=== PATIENT | female | born 1970 | race African-American/Black ===

== ENCOUNTER 2019-07-02 14:13 | Emergency (ER) | payer OTHER ==
[~2019-07-02] VITALS: Ht 170.2 cm; Wt 100.0 kg
[2019-07-02 19:25] LABS: BASOPHILS % 0.9 % (0.0-2.0); EOSINOPHILS % 0.7 % (0.0-5.0); HEMATOCRIT. 27.4 % (36.0-48.0); LYMPHOCYTES % 31.9 % (20.0-50.0); MEAN CORPUSCULAR HEMOGLOBIN 19.8 pg (28.0-32.0); MEAN PLATELET VOLUME 8.3 fl (7.4-10.4); MONOCYTES % 8.6 % (2.0-8.0); NEUTROPHILS % 57.9 % (40.0-76.0); PLATELET 420 x1000/uL (130-400); RED BLOOD CELL COUNT 4.03 mill/uL (4.2-5.4); RED CELL DISTRIBUTION WIDTH 20.9 % (11.6-14.6)
[2019-07-02 19:26] LABS: CHLORIDE 105 mEq/L (98-107)
[2019-07-02 20:14] LABS: PLATELET ESTIMATE SLIGHTLY INCREASED
[2019-07-02 20:24] LABS: CLARITY URINE CLOUDY (CLEAR); COLOR URINE YELLOW (YELLOW); KETONES URINE NEGATIVE (NEGATIVE); LEUKOCYTE ESTERASE URINE 1+ (NEGATIVE); NITRITE URINE NEGATIVE (NEGATIVE); OCCULT BLOOD URINE NEGATIVE (NEGATIVE); PH URINE 6.5 (4.5-8.0); PROTEIN URINE NEGATIVE (NEGATIVE); SPECIFIC GRAVITY URINE 1.023 (1.005-1.030)
[2019-07-02 21:00] VITALS: BP 156/67
== END 2019-07-02 21:00 | disposition home or self-care (01) ==
LOC: ER 14:13
DX: R53.83 Other fatigue (principal); R00.0 Tachycardia, unspecified; D64.9 Anemia, unspecified; I10 Essential (primary) hypertension; Z98.84 Bariatric surgery status
CPT/HCPCS: 36415; 71045; 81003; 83880; 84484; 86850; 86900; 93005; 99284

== ENCOUNTER 2019-09-26 09:58 | Inpatient (IN) | payer OTHER ==
[~2019-09-26] VITALS: Ht 172.7 cm; Wt 137.0 kg
[2019-09-26 12:53] LABS: CHLORIDE 105 mEq/L (98-107)
[2019-09-26 12:55] LABS: BASOPHILS % 0.8 % (0.0-2.0); EOSINOPHILS % 0.2 % (0.0-5.0); HEMATOCRIT. 26.3 % (36.0-48.0); HEMOGLOBIN. 7.6 g/dL (12.0-16.0); LYMPHOCYTES % 28.7 % (20.0-50.0); MEAN CORPUSCULAR HEMOGLOBIN 19.2 pg (28.0-32.0); MEAN CORPUSCULAR VOLUME 66.8 fL (81.0-99.0); MEAN PLATELET VOLUME 8.8 fl (7.4-10.4); MONOCYTES % 6.7 % (2.0-8.0); NEUTROPHILS % 63.6 % (40.0-76.0); PLATELET 380 x1000/uL (130-400); RED BLOOD CELL COUNT 3.94 mill/uL (4.2-5.4); RED CELL DISTRIBUTION WIDTH 22.1 % (11.6-14.6)
[2019-09-26 13:10] LABS: PROTHROMBIN TIME 10.7 sec (9.6-11.0)
[2019-09-26 13:51] LABS: PLATELET ESTIMATE NORMAL
[2019-09-26] MEDS ORDERED: HYDROCODONE/ACETAMINOPHEN 5/325MG TABLET PO PRN ×2 (19:00→22:30)
[2019-09-26] MEDS ORDERED: SODIUM CHLORIDE 0.9% 1,000 ML IV SCH (22:10)
[2019-09-26] MEDS ORDERED: MORPHINE SULFATE 2 MG/ML CPJ (NOT FOR IM USE) IV PRN (22:15)
[2019-09-26] MEDS ORDERED: ONDANSETRON HCL 4MG/2ML INJ IV PRN (22:15)
[2019-09-26] MEDS ORDERED: HYDROCODONE/APAP 7.5/325MG 1 TAB TABLET PO PRN (22:15)
[2019-09-26] MEDS ORDERED: CLONIDINE 0.1MG TABLET PO PRN (22:15)
[2019-09-26] MEDS ORDERED: LORAZEPAM 2MG/ML CPJ IV PRN (22:15)
[2019-09-26] MEDS ORDERED: FERROUS SULFATE 325MG TABLET PO SCH (22:45)
[2019-09-26] MEDS: POTASSIUM CHLORIDE 20MEQ TABLET SR PO SCH (22:55)
[2019-09-27 05:58] LABS: BASOPHILS % 0.9 % (0.0-2.0); EOSINOPHILS % 0.9 % (0.0-5.0); HEMATOCRIT. 26.2 % (36.0-48.0); HEMOGLOBIN. 7.7 g/dL (12.0-16.0); MEAN CORPUSCULAR HEMOGLOBIN 19.7 pg (28.0-32.0); MEAN CORPUSCULAR VOLUME 67.2 fL (81.0-99.0); MEAN PLATELET VOLUME 8.7 fl (7.4-10.4); MONOCYTES % 10.2 % (2.0-8.0); PLATELET 335 x1000/uL (130-400); RED BLOOD CELL COUNT 3.89 mill/uL (4.2-5.4)
[2019-09-27 06:00] LABS: CHLORIDE 109 mEq/L (98-107)
[2019-09-27 06:05] LABS: PHOSPHORUS 2.8 mg/dL (2.5-4.9)
[2019-09-27 09:00] VITALS: BP 195/84
[2019-09-27] MEDS ORDERED: IBUP-2029 PO (09:58)
[2019-09-27] MEDS ORDERED: FERR-71 PO (09:59)
[2019-09-27] MEDS ORDERED: LORA10TA64 PO (10:00)
[2019-09-27] MEDS ORDERED: INFLUENZA VIRUS VACCINE(AFLURIA) 0.5ML SYR IM ONE (10:30)
[2019-09-27] MEDS: POTASSIUM CHLORIDE 20MEQ TABLET SR PO SCH (10:52)
[2019-09-27] MEDS: DOCUSATE SODIUM 250MG CAPSULE PO SCH (10:52)
[2019-09-27 11:11] VITALS: BP 195/84
[2019-09-27 12:00] VITALS: BP 123/53
[2019-09-27] MEDS: FERROUS SULFATE 325MG TABLET PO SCH ×2 (15:22→18:26)
[2019-09-27 16:00] VITALS: BP 141/56
[2019-09-27 20:00] VITALS: BP 119/55
[2019-09-27] MEDS: AMLODIPINE 5MG TABLET PO SCH (20:58)
[2019-09-28 04:00] VITALS: BP 139/77
[2019-09-28 07:49] LABS: BASOPHILS % 1.5 % (0.0-2.0); EOSINOPHILS % 1.3 % (0.0-5.0); HEMATOCRIT. 26.1 % (36.0-48.0); HEMOGLOBIN. 7.6 g/dL (12.0-16.0); LYMPHOCYTES % 32.6 % (20.0-50.0); MEAN CORPUSCULAR HEMOGLOBIN 19.8 pg (28.0-32.0); MEAN CORPUSCULAR VOLUME 68.3 fL (81.0-99.0); MEAN PLATELET VOLUME 8.8 fl (7.4-10.4); MONOCYTES % 9.5 % (2.0-8.0); NEUTROPHILS % 55.1 % (40.0-76.0); PLATELET 332 x1000/uL (130-400); RED BLOOD CELL COUNT 3.82 mill/uL (4.2-5.4); RED CELL DISTRIBUTION WIDTH 23.2 % (11.6-14.6)
[2019-09-28 08:00] VITALS: BP 156/72
[2019-09-28 08:17] LABS: CHLORIDE 108 mEq/L (98-107)
[2019-09-28] MEDS: DOCUSATE SODIUM 250MG CAPSULE PO SCH (09:37)
[2019-09-28] MEDS: POTASSIUM CHLORIDE 20MEQ TABLET SR PO SCH (09:37)
[2019-09-28] MEDS: FERROUS SULFATE 325MG TABLET PO SCH (09:37)
[2019-09-28] MEDS: AMLODIPINE 5MG TABLET PO SCH (09:38)
[2019-09-28 11:10] VITALS: BP 138/72
[2019-09-28 12:00] VITALS: BP 138/76
[2019-09-28 15:05] LABS: *AMPHETAMINES SCREEN URINE NEGATIVE (NEGATIVE); *BARBITURATES SCREEN URINE NEGATIVE (NEGATIVE); *BENZODIAZEPINES SCREEN URINE NEGATIVE (NEGATIVE)
[2019-09-28 15:06] LABS: *COCAINE SCREEN URINE NEGATIVE (NEGATIVE); CANNABINOID URINE SCREEN NEGATIVE (NEGATIVE); METHADONE URINE SCREEN NEGATIVE (NEGATIVE); OPIATES URINE SCREEN PRESUMTIVE POSITIVE (NEGATIVE); PHENCYCLIDINE URINE SCREEN NEGATIVE (NEGATIVE)
== END 2019-09-28 13:00 | disposition home or self-care (01) | DRG 663 ==
LOC: ER 10:11 → 7WST 15:27 → EDBEDREQ 15:31 → ENRESERV 09-27 07:35
PROVIDERS: ADMIT Internal Medicine Nephrology; ATTEND Internal Medicine Nephrology
PROC: 30233N1 Transfusion of Nonautologous Red Blood Cells into Peripheral Vein, Percutaneous Approach (ICD-10-PCS; principal; 2019-09-26)
PROC: 0UPH7YZ Removal of Other Device from Vagina and Cul-de-sac, Via Natural or Artificial Opening (ICD-10-PCS; 2019-09-27)
DX: D50.0 Iron deficiency anemia secondary to blood loss (chronic) (principal); D25.9 Leiomyoma of uterus, unspecified; E66.9 Obesity, unspecified; E87.6 Hypokalemia; I10 Essential (primary) hypertension; T19.2XXA Foreign body in vulva and vagina, initial encounter; X58.XXXA Exposure to other specified factors, initial encounter; Y93.89 Activity, other specified; Y92.89 Other specified places as the place of occurrence of the external cause; Y99.8 Other external cause status; Z98.84 Bariatric surgery status; Z71.3 Dietary counseling and surveillance
CPT/HCPCS: 36415; 80048; 80053; 80305; 83735; 84100; 85025; 86850; 86900; 86920; 93005; 99285; P9016